=== PATIENT | male | born 1970 | race Caucasian/White ===

== ENCOUNTER 2018-03-09 20:51 | Emergency (ER) | payer SELFPAY ==
[~2018-03-09] VITALS: Ht 165.1 cm; Wt 64.0 kg
[2018-03-09 23:00] VITALS: BP 132/68
== END 2018-03-10 03:09 | disposition left against medical advice (07) ==
LOC: ER 22:53
DX: H57.10 Ocular pain, unspecified eye (principal); Z53.21 Procedure and treatment not carried out due to patient leaving prior to being seen by health care provider